=== PATIENT | female | born 1950 | race African-American/Black ===

== ENCOUNTER → 2017-12-20 | Outpatient (CLI) | payer OTHER ==
[~2017-12-20] MED LIST: AMLO10CA PO; AMLO5TAB96 PO; BACL10TA PO; CALC1TAB87 PO; DICL75 PO; DICL75TA PO; HYDR25TA5 PO; LACTCAP8 PO; LEVO.1 PO; LEVO.125 PO; METO1TAB9 PO; OMNI1SUS EACH EYE; PRED20 PO; PROT40TA PO; TOPR50TA PO
--- NOTE | 2017-12-20 11:50 | RADRPT ---
EXAM DATE: 12/20/2017 11:24 AM EDT AGE/SEX: 67 years / Female INDICATIONS: Evaluate for pneumonia, pneumothorax, or communicable disease. Pre op for hysterectomy . CLINICAL DATA: This is the patient's initial encounter. Patient reports that signs and symptoms have been present for 1 day and indicates a pain score of 0/10. MEDICAL/SURGICAL HISTORY: None. None. COMPARISON: No prior [facility] exams available for comparison. FINDINGS: PA and lateral views of the chest demonstrate the lungs to be symmetrically aerated without evidence of mass, infiltrate or effusion. The cardiomediastinal contours are unremarkable. Osseous structures are intact. CONCLUSION: No acute cardiopulmonary process. Electronically signed by: Barry Cantor MD 12/20/2017 11:49 AM EDT
== END ==
LOC: CPRE 10:14
PROVIDERS: ATTEND Obstetrics & Gynecology
DX: Z01.812 Encounter for preprocedural laboratory examination (principal); Z01.811 Encounter for preprocedural respiratory examination; N95.0 Postmenopausal bleeding; N84.0 Polyp of corpus uteri
CPT/HCPCS: 71046

== ENCOUNTER → 2017-12-26 | Day surgery (SDC) | payer OTHER ==
[~2017-12-26] VITALS: Ht 160 cm; Wt 87.7 kg
[~2017-12-26] MED LIST changes: -AMLO5TAB96 PO; -BACL10TA PO; +CHLORHEXIDINE GLUCONATE 2 % 1 PACK (2 CLOTHS) TOPICAL PRN; +DEXAMETHASONE SOD PHOS 4 MG/ML VIAL IV ONE; -DICL75 PO; +DO NOT ADM ANY ANTICOAGULANT DRUGS PRN; +GENTAMICIN INJ 80 MG in SODIUM CHLORIDE 0.9% INJ 100 ML IV ONE; +KETOROLAC TROMETHAMINE 30 MG/ML (IVP) VIAL IM PRN; +KETOROLAC TROMETHAMINE 30 MG/ML (IVP) VIAL IV PUSH ONE; +LACTATED RINGER'S 1000 ML IV PRN; -LEVO.1 PO; +LEVOFLOXACIN 500 MG PREMIX INJ 100 ML IV ONE; +LIDOCAINE HCL 1% PF 5 ML SYRINGE OTHER ONE; +METOPROLOL TARTRATE 25 MG TAB PO PRN; +ONDANSETRON HCL 4 MG/2 ML VIAL IV PUSH ONE; +ONDANSETRON HCL 4 MG/2 ML VIAL IV PUSH PRN; +ONDANSETRON ODT 4 MG TAB PO PRN; +POVIDONE IODINE 5% (ANTISEPSIS KIT) 4 APPLICATIONS EACH NARE PRN; -PRED20 PO; +PROPOFOL 200 MG/20 ML AMP IV ONE; +SODIUM CHLORID 0.9% 500 ML IV PRN; -TOPR50TA PO; +oxyCODONE/ACETAMINOPHEN 5 MG/325 MG TAB PO PRN
[2017-12-26 07:41] LABS: BILIRUBIN, URINE NEG (NEG); BLOOD, URINE NEG (NEG); GLUCOSE,URINE NEG (NEG); KETONE, URINE NEG (NEG); MUCUS URINE FEW /lpf (OCC); NITRITE,URINE NEG (NEG); PH, URINE 5.5 (5.0-8.5); SQUAMOUS EPITHELIAL CELL URINE 4 /hpf (0-5); URINE COLOR YELLOW (YELLW/STRAW); URINE LEUKOCYTE ESTERASE SMALL (NEG)
--- NOTE | 2017-12-26 09:16 | MP ---
cc: Marsha Guajardo MD DATE OF OPERATION: 12/26/2017 PREOPERATIVE DIAGNOSIS: Postmenopausal bleeding, thickened endometrium. POSTOPERATIVE DIAGNOSIS: Postmenopausal bleeding, thickened endometrium. PROCEDURE PERFORMED: Examination under anesthesia, hysteroscopy, MyoSure endometrial resection. SURGEON: Dr. Guajardo. ANESTHESIA: General via LMA. FLUIDS: 500 mL crystalloids. ESTIMATED BLOOD LOSS: 10 mL URINE OUTPUT: 25 mL on straight cath prior to procedure. FLUID DEFICIT: 310 mL of saline. FINDINGS: An endometrial mass was noted at hysteroscopy and this was resected and sent to pathology. PROCEDURES: The patient was taken to the operating room where general anesthesia was found to be adequate. She was then prepped and draped in the normal sterile fashion in the dorsal lithotomy position. Her urinary bladder was emptied of urine using sterile technique. A weighted speculum was placed in the vagina. Single-tooth tenaculum applied to the anterior lip of the cervix. The cervix was dilated with Alfred dilators sizes 9 through 20. Hysteroscopy was then performed and the endometrial mass was resected using the MyoSure device. The tissue was sent to pathology. All of the instruments were removed from the vagina. Hemostasis was assured. The sponge, lap, needle and instrument counts were correct. The patient was awakened from anesthesia and transferred to recovery room in stable condition. PATHOLOGY: Endometrial tissue. Marsha Guajardo MD [facility]/TL , 08:58 AM , 09:16 AM
[2017-12-26 10:35] VITALS: BP 131/72; PULSE 56; RESP 16; TEMP 97.5; O2SAT 96
== END | disposition home or self-care (01) ==
LOC: HSDC 05:59
PROVIDERS: ATTEND Obstetrics & Gynecology
DX: N95.0 Postmenopausal bleeding (principal); N84.0 Polyp of corpus uteri; R93.8 Abnormal findings on diagnostic imaging of other specified body structures; I10 Essential (primary) hypertension; E03.9 Hypothyroidism, unspecified; K21.9 Gastro-esophageal reflux disease without esophagitis; D64.9 Anemia, unspecified
CPT/HCPCS: 00952; 58558; 81001; 86850; 86900; 86901; 88305; J1100; J1885; J2405; J3010; J7120